=== PATIENT | male | born 1940 | race Caucasian/White ===

== ENCOUNTER → 2016-05-07 | Outpatient (CLI) | payer OTHER ==
[~2016-05-07] MED LIST: ACYC-57 PO; ALBU0.633 INH; ASPI81TA28 PO; CLOT10TR PO; DOCU-94 PO; FLUT1INH7 INH; LEVO50TA6 PO; LSX40 PO; MRLP17 PO; MULTTAB58 PO; NAPR-1221 PO; PRED10TA PO; SIMV20TA2 PO; SULF800T23 PO; VNTHFA/IN INH
--- NOTE | 2016-05-07 09:25 | DIAGNOSTIC IMAGING REPORT ---
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 Chronic fibrotic changes throughout both hemithoraces. Some progressive infiltrative/fibrotic change right base with slightly progressive right effusion. Pulmonary vasculature is somewhat prominent. IMPRESSION: Diffuse fibrotic and postoperative change considered generally stable. 2. Probable superimposed component of congestive failure and/or superimposed right basilar infiltrative change. Electronically signed by: Sean Devine M.D. 05/07/2016 9:24 AM
== END | disposition home or self-care (01) ==
LOC: C.RAD1850 09:08
PROVIDERS: ATTEND Allergy & Immunology Allergy
DX: C34.90 Malignant neoplasm of unspecified part of unspecified bronchus or lung (principal); J70.0 Acute pulmonary manifestations due to radiation; R06.02 Shortness of breath

== ENCOUNTER → 2016-05-07 | Outpatient (CLI) | payer OTHER ==
[2016-05-07 11:05] LABS: BASO % 0.1 %; BASO ABS # 0.01 K/uL (0-0.2); COMPLETE YES; EOS % 0.4 %; HEMATOCRIT 37.8 % (42-52); IG% 0.4 %; LYMPH % 18.4 %; LYMPH ABS # 1.73 K/uL (1.2-3.4); MEAN CELL VOLUME 96.2 fL (80-100); MEAN CORPUSCULAR HEMOGLOBIN 32.8 pg (25-34); MEAN CORPUSCULAR HGB CONC 34.1 g/dl (32-36); MEAN PLATELET VOLUME 9.9 fL (7.4-10.4); MONO % 7.2 %; NEUT % 73.5 %; PLATELET COUNT 302 K/uL (130-400); RED BLOOD COUNT 3.93 M/uL (4.7-6.1); WHITE BLOOD COUNT 9.41 K/uL (4.8-10.8)
[2016-05-07 11:20] LABS: ALT/SGPT 56 U/L (12-78); BLOOD UREA NITROGEN 21 mg/dl (7-18); BUN/CREATININE RATIO 21.4 (10-20); CALCIUM 8.2 mg/dl (8.5-10.1); CARBON DIOXIDE 25 mmol/L (21-32); CHLORIDE 100 mmol/L (98-107); GLUCOSE 80 mg/dl (70-99); POTASSIUM 4.4 mmol/L (3.5-5.1); SODIUM 134 mmol/L (136-145)
[2016-05-07 11:23] LABS: ALB/GLOB RATIO 0.4 (0.9-2); ALKALINE PHOSPHATASE 256 U/L (45-117); AST/SGOT 54 U/L (15-37)
== END | disposition home or self-care (01) ==
LOC: C.LAB1850 09:43
PROVIDERS: ATTEND Allergy & Immunology Allergy
DX: C34.90 Malignant neoplasm of unspecified part of unspecified bronchus or lung (principal); J18.9 Pneumonia, unspecified organism; R06.02 Shortness of breath; J70.0 Acute pulmonary manifestations due to radiation